=== PATIENT | female | born 1980 | race Hispanic/Latino ===

== ENCOUNTER 2021-12-11 01:42 | Emergency (ER) | payer OTHER ==
[~2021-12-11] VITALS: Ht 160 cm; Wt 79.4 kg
[2021-12-11 06:03] VITALS: BP 117/62
== END 2021-12-11 06:08 | disposition home or self-care (01) ==
LOC: EDH 01:42
DX: I83.891 Varicose veins of right lower extremity with other complications (principal); Z90.710 Acquired absence of both cervix and uterus
CPT/HCPCS: 35226